=== PATIENT | female | born 1980 | race Caucasian/White ===

== ENCOUNTER 2017-05-25 19:30 | Outpatient (CLI) | payer OTHER | END 2017-05-25 19:31 | disposition home or self-care (01) | LOC: SLEEPLAB 19:30 | PROVIDERS: ATTEND Family Medicine | DX: G47.33 Obstructive sleep apnea (adult) (pediatric) (principal); E66.9 Obesity, unspecified; I10 Essential (primary) hypertension; J44.9 Chronic obstructive pulmonary disease, unspecified; G47.00 Insomnia, unspecified | CPT/HCPCS: 95811 ==

== ENCOUNTER 2019-11-26 13:59 | Outpatient (CLI) | payer OTHER ==
--- NOTE | 2019-11-26 14:42 | ULT ---
BILATERAL LOWER EXTREMITY VENOUS ULTRASOUND: 11/26/19 COMPARISON: None. HISTORY: Bilateral lower extremity swelling. TECHNIQUE: Multiplanar edmond scale and color Doppler images were obtained in a bilateral lower extremity venous u ltrasound. Spectral analysis of the Doppler waveforms were performed. FINDINGS: The bilateral common femoral veins, profunda femoral veins, superficial femoral veins, and popliteal veins are normal in appearance without visible thrombus. These vessels demonstrate normal compression , flow, and augmentation. The posterior tibial veins and greater saphenous veins are also patent. IMPRESSION: No evidence of DVT. POS: [facility]
== END 2019-11-26 14:00 | disposition home or self-care (01) ==
LOC: SCSULT 13:59
PROVIDERS: ATTEND Family Medicine
DX: R60.0 Localized edema (principal)
CPT/HCPCS: 80053; 83880; 84443; 85025; 85379; 93970

== ENCOUNTER 2020-01-11 19:00 | Outpatient (CLI) | payer OTHER | END 2020-01-11 19:01 | disposition home or self-care (01) | LOC: SLEEPLAB 19:00 | PROVIDERS: ATTEND Family Medicine | DX: G47.33 Obstructive sleep apnea (adult) (pediatric) (principal); R06.83 Snoring; G47.00 Insomnia, unspecified; G47.10 Hypersomnia, unspecified; I10 Essential (primary) hypertension | CPT/HCPCS: 95810 ==

== ENCOUNTER 2020-01-31 19:30 | Outpatient (CLI) | payer OTHER | END 2020-01-31 19:31 | disposition home or self-care (01) | LOC: SLEEPLAB 19:30 | PROVIDERS: ATTEND Family Medicine | DX: G47.33 Obstructive sleep apnea (adult) (pediatric) (principal) | CPT/HCPCS: 95811 ==

== ENCOUNTER 2022-09-30 10:10 | Emergency (ER) | payer OTHER ==
[2022-09-30] MEDS ORDERED: Acetaminophen 500 MG TAB ONE (10:41)
== END 2022-09-30 12:00 | disposition home or self-care (01) ==
LOC: ERS 10:10
DX: S20.211A Contusion of right front wall of thorax, initial encounter (principal); S63.502A Unspecified sprain of left wrist, initial encounter; S80.01XA Contusion of right knee, initial encounter; K21.9 Gastro-esophageal reflux disease without esophagitis; J44.9 Chronic obstructive pulmonary disease, unspecified; F17.210 Nicotine dependence, cigarettes, uncomplicated; V89.2XXA Person injured in unspecified motor-vehicle accident, traffic, initial encounter
CPT/HCPCS: 29125; 71045; 93005

== ENCOUNTER 2023-04-10 07:07 | Emergency (ER) | payer OTHER ==
[2023-04-10 07:43] LABS: #Basophils 0.1 thou/uL (0.0-0.2); #Eosinphils 0.4 thou/uL (0.0-0.7); #Monocytes 1.9 thou/uL (0.11-0.59); #Neutrophils 9.7 thou/uL (1.40-6.50); %Basophils 0.8 % (0.0-1.0); %Eosinophils 2.3 % (0.0-10.0); %Lymphocytes 24.4 % (21.0-51.0); %Monocytes 11.9 % (0.0-10.0); %Neutrophils 60.1 % (42.0-75.0); Hematocrit 49.7 % (36.0-47.0); Hemoglobin 16.3 g/dL (12.0-16.0); Mean Corpuscular HGB CONC 32.8 g/dL (32.0-36.0); Mean Corpuscular Hemoglobin 32.5 pg (27.0-31.0); Mean Corpuscular Volume 99.2 fl (78.0-98.0); Mean Platelet Volume 11.6 fL (7.4-10.4); Platelet Count 265 10x3/uL (130-400); RBC Distribution Width 13.9 % (11.5-14.5); Red Blood Cell (RBC) Count 5.01 mill/uL (4.20-5.40); White Blood Cell (WBC) Count 16.2 10x3/uL (4.8-10.8)
[2023-04-10] MEDS ORDERED: Aspirin Chewable 81 MG TAB ONE (07:46)
[2023-04-10] MEDS ORDERED: Ipratropium/Albuterol 3 ML NEB ONE (07:55)
[2023-04-10] MEDS ORDERED: predniSONE 20 MG TAB ONE (08:30)
[2023-04-10] MEDS ORDERED: Albuterol 2.5 MG/0.5 ML NEB ONE (08:47)
[2023-04-10] MEDS ORDERED: Ipratropium Bromide 2.5 ml Neb ONE (08:48)
[2023-04-10 09:38] LABS: Albumin 4.1 g/dL (3.5-5.0)
[2023-04-10 09:40] LABS: Chloride 100 mmol/L (98-107); Potassium 3.7 mmol/L (3.5-5.1); Sodium 140 mmol/L (136-145)
[2023-04-10 09:41] LABS: Calcium 9.4 mg/dL (7.8-10.44); Globulin 3.5 g/dL (2.4-3.5); Glucose 119 mg/dL (70-105); Protein, Total 7.6 g/dL (6.0-8.3)
[2023-04-10 09:42] LABS: Anion Gap 16 mmol/L (10-20); Carbon Dioxide 28 mmol/L (22-29)
[2023-04-10 09:43] LABS: Bilirubin, Total 0.2 mg/dL (0.2-1.2)
[2023-04-10 09:44] LABS: Alkaline Phosphatase 107 U/L (40-110)
[2023-04-10 09:45] LABS: BUN (Urea Nitrogen) 10 mg/dL (7.0-18.7); Calc. Creatinine Clearance 0 mL/min (70-130); Estimated GFR 87
[2023-04-10 09:46] LABS: AST (SGOT) 28 U/L (5-34)
[2023-04-10 09:47] LABS: ALT (SGPT) 45 U/L (8-55); Lipase 22 U/L (8-78)
== END 2023-04-10 10:23 | disposition home or self-care (01) ==
LOC: ERS 07:07
DX: J44.1 Chronic obstructive pulmonary disease with (acute) exacerbation (principal); R07.89 Other chest pain; K21.9 Gastro-esophageal reflux disease without esophagitis; F17.210 Nicotine dependence, cigarettes, uncomplicated
CPT/HCPCS: 36415; 71045; 80053; 83690; 84484; 85025; 93005; 94640; 94644; J7512; J7611; J7620

== ENCOUNTER 2024-04-25 22:58 | Emergency (ER) | payer MEDICAID, OTHER, SELFPAY ==
[2024-04-26 01:11] LABS: #Basophils 0.06 10x3/uL (0.0-0.2); %Basophils 0.6 % (0.0-1.0); %Eosinophils 3.9 % (0.0-10.0); %Lymphocytes 30.9 % (21.0-51.0); %Monocytes 10.4 % (0.0-10.0); %Neutrophils 53.8 % (42.0-75.0); Hemoglobin 13.9 g/dL (12.0-16.0); Mean Corpuscular HGB CONC 30.9 g/dL (32.0-36.0); Mean Corpuscular Hemoglobin 31.7 pg (27.0-31.0); Mean Corpuscular Volume 102.7 fL (78.0-98.0); Mean Platelet Volume 12.2 fL (7.4-10.4); Platelet Count 154 10x3/uL (130-400); RBC Distribution Width 13.3 % (11.5-14.5); Red Blood Cell (RBC) Count 4.38 mill/uL (4.20-5.40)
[2024-04-26 01:25] LABS: BHCG - Serum Negative (NEGATIVE); Pregs Control Background? CLEAR/WHITE (CLR/WHITE); Pregs Control Bar Appear? YES (CONTROL BAR)
[2024-04-26 01:33] LABS: ALT (SGPT) 48 U/L (8-55); AST (SGOT) 28 U/L (5-34); Albumin 3.6 g/dL (3.5-5.0); Alkaline Phosphatase 100 U/L (40-110); Anion Gap 13 mmol/L (10-20); BUN (Urea Nitrogen) 10 mg/dL (7.0-18.7); Bilirubin, Total 0.3 mg/dL (0.2-1.2); Calc. Creatinine Clearance 0 mL/min (70-130); Calcium 9.6 mg/dL (7.8-10.44); Carbon Dioxide 36 mmol/L (22-29); Chloride 97 mmol/L (98-107); Estimated GFR 95; Globulin 3.5 g/dL (2.4-3.5); Glucose 308 mg/dL (70-105); Magnesium 1.7 mg/dL (1.6-2.6); Protein, Total 7.1 g/dL (6.0-8.3); Sodium 142 mmol/L (136-145)
[2024-04-26] MEDS ORDERED: Ipratropium/Albuterol 3 ML NEB ONE (01:40)
[2024-04-26] MEDS ORDERED: methylPREDNISolone Sod Succ/PF 125 MG/2 ML VIAL ONE (02:34)
[2024-04-26 03:59] LABS: Actual Bicarbonate (HCO3v) 35.5 mEq/L (22-28); Base Excess 6.3 mEq/L (-2.0 to +3.0); Chloride (VBG) 97 mmol/L (98-106); Hematocrit-VBG 44 % (36.0-47.0); Hemoglobin (Hb) 14.9 g/dL (11.7-15.5); Potassium (VBG) 3.83 mmol/L (3.70-5.30); Sodium 141 mmol/L (133-146); pH (venous) 7.307 (7.32-7.43)
[2024-04-26] MEDS ORDERED: Iopamidol 370 76% 100 ML VIAL ONE (08:47)
== END 2024-04-26 06:19 | disposition home or self-care (01) ==
LOC: ERS 22:58
DX: J44.1 Chronic obstructive pulmonary disease with (acute) exacerbation (principal)
CPT/HCPCS: 36415; 71045; 71275; 80053; 82805; 83735; 84703; 85025; 85379; 93005; 94640; 96374; J2919; J7620; Q9967

== ENCOUNTER 2025-06-26 23:16 | Emergency (ER) | payer MEDICAID, OTHER ==
[2025-06-26 23:49] LABS: #Basophils 0.12 10x3/uL (0.0-0.2); #Eosinophils 0.45 10x3/uL (0.0-0.7); #Monocytes 1.46 10x3/uL (0.11-0.59); #Neutrophils 7.36 10x3/uL (1.40-6.50); %Basophils 0.8 % (0.0-1.0); %Eosinophils 3.2 % (0.0-10.0); %Lymphocytes 33.6 % (21.0-51.0); %Monocytes 10.3 % (0.0-10.0); %Neutrophils 51.8 % (42.0-75.0); Hematocrit 47.2 % (36.0-47.0); Hemoglobin 14.9 g/dL (12.0-16.0); Mean Corpuscular Hemoglobin 32.0 pg (27.0-31.0); Mean Corpuscular Volume 101.5 fL (78.0-98.0); Platelet Count 240 10x3/uL (130-400); Red Blood Cell (RBC) Count 4.65 mill/uL (4.20-5.40); White Blood Cell (WBC) Count 14.20 10x3/uL (4.8-10.8)
[2025-06-26 23:52] LABS: Bacteria/HPF None Seen HPF (None Seen); CAUTI Indications for Culture Pelvic or flank pain; Glucose, Urine (Dipstick) Normal (Negative); Leukocyte Negative Leu/uL (Negative); Protein, Urine (Dipstick) Negative (Neg-Trace); RBC/HPF 0-3 HPF (0-3); Specific Gravity, Urine 1.017 (1.002-1.036); WBC/HPF None Seen HPF (0-3)
[2025-06-26 23:54] LABS: Urine Culture Reflex No No
[2025-06-27 00:10] LABS: ALT (SGPT) 26 U/L (Less than 34); AST (SGOT) 25 U/L (11-34); Albumin 4.3 g/dL (3.1-4.5); Alkaline Phosphatase 89 U/L (40-110); Anion Gap 18 mmol/L (10-20); BUN (Urea Nitrogen) 9 mg/dL (7.0-18.7); Bilirubin, Total 0.2 mg/dL (0.3-1.2); Calc. Creatinine Clearance 0 mL/min (70-130); Calcium 9.6 mg/dL (7.8-10.44); Carbon Dioxide 29 mmol/L (22-29); Chloride 100 mmol/L (98-107); Globulin 3.5 g/dL (2.4-3.5); Glucose 94 mg/dL (70-105); Potassium 3.9 mmol/L (3.5-5.1); Sodium 143 mmol/L (136-145)
== END 2025-06-27 01:50 | disposition home or self-care (01) ==
LOC: ERS 23:16
DX: J44.1 Chronic obstructive pulmonary disease with (acute) exacerbation (principal); F17.210 Nicotine dependence, cigarettes, uncomplicated
CPT/HCPCS: 71045; 80053; 81001; 83880; 84484; 85025; 93005; 94640; 96374; J2919